=== PATIENT | female | born 1990 ===

== ENCOUNTER 2018-11-04 10:17 | Emergency (ER) | payer MEDICAID ==
--- NOTE | 2018-11-04 10:53 | ED PDOC ---
HPI: Chest Pain History Per: Patient History/Exam Limitations: no limitations Onset/Duration Of Symptoms: Days (4) Quality: Sharp Exacerbating Factors: Movement, Deep Breathing Additional Complaint(s): Pt is a 28 y/ o female with no pmhx presents to ED for evaluation of left sided chest pain. States she noticed this pain 4 days ago after cleaning around the house for 1.5hr shortly before. She localizes the pain to her left lateral chest extending to her underarm, describes it as sharp, rating 6/10 - 10/10 in inten sity. Reports that it is exacerbated with adduction of her left arm and twisting her torso, and inhaling deeply. She has tried taking Motrin 600mg and states it did not alleviate her pain at all. She denies any palpitations, diaphoresis, LE edema, shortness of breath, cough, congestion, fever/ chills, prolonged immobility, or any symptoms with exertion or food. She reports that she often stand for long periods of time at her job and does not stretch or exercise. ROS:vomited once yesterday morning, non bloody, no other GI symptoms PMD: Dr. Carter PMHX: Denies of cardiac, pul disease, or clots. SurgHx: Denies FMHx: No fm hx of cardiac disease or sudden Medications: Motrin prn for pain. 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, denies smoking, alcohol or drug use <Ti Mercedes - Last Filed: 11/04/18 15:40> <Erick Kennedy - Last Filed: 11/07/18 17:14> Time Seen by Provider: 11/04/18 10:34 Chief Complaint (Nursing): Chest Pain Past Medical History Reviewed: Historical Data, Nursing Documentation, Vital Signs Vital Signs: Last Vital Signs Temp 99 F 11/04/18 10:32 Pulse 98 H 11/04/18 10:32 Resp 18 11/04/18 10:32 BP 139/81 11/04/18 10:32 Pulse Ox 99 11/04/18 10:32 - Medical History PMH: No Chronic Diseases - Surgical History Surgical History: No Surg Hx - Family History Family History: States: No Known Family Hx - Living Arrangements Living Arrangements: With Family <Ti Mercedes - Last Filed: 11/04/18 15:40> Reviewed: Historical Data Vital Signs: Last Vital Signs Temp 98 F 11/04/18 17:28 Pulse 88 11/04/18 17:28 Resp 20 11/04/18 17:28 BP 134/78 11/04/18 17:28 Pulse Ox 99 11/04/18 17:29 <Erick Kennedy - Last Filed: 11/07/18 17:14> - Allergies Allergies/Adverse Reactions: Allergies Allergy/AdvReac Type Severity Reaction Status Date / Time No Known Allergies Allergy Verified 11/04/18 10:32 MAURICIO Risk Score for UA/NSTEMI - MAURICIO Risk Score Age > 64: NO 3 or more CAD Risk Factors: NO Known CAD (Stenosis greater than 50%): NO Aspirin use in past 7 days: NO Severe Angina: NO EKG ST changes greater than 0.5mm: NO Positive Cardiac Marker: NO MAURICIO Score: 0 Risk %: 5% <Erick Kennedy - Last Filed: 11/07/18 17:14> Wells Criteria for PE - Wells Criteria for Pulmonary Embolism Clinical Signs and Symptoms of DVT: No P.E is #1 Diagnosis, or Equally Likely: No Heart Rate >100: No Immobilization at least 3 days;Surgery previous 4 weeks: No Previous, objectively diagnosed PE or DVT: No Hemoptysis: No Malignancy w/treatment within 6 months, or palliative: No Total Score: 0 <Ti Mercedes - Last Filed: 11/04/18 15:40> Review of Systems Constitutional: Negative for: Fever, Chills Cardiovascular: Negative for: Palpitations Respiratory: Negative for: Cough, Shortness of Breath, Hemoptysis Gastrointestinal: Positive for: Vomiting (x1). Negative for: Nausea, Abdominal Pain, Diarrhea Genitourinary Female: Negative for: Dysuria Musculoskeletal: Negative for: Neck Pain, Shoulder Pain <Ti Mercedes - Last Filed: 11/04/18 15:40> ROS Statement: Except As Marked, All Systems Reviewed And Found Negative <Erick Kennedy - Last Filed: 11/07/18 17:14> Physical Exam - Physical Exam Appears: Positive for: No Acute Distress (Comfortable appearing female, seen walking to and from bathroom without any difficulty ) Head Exam: Positive for: ATRAUMATIC Skin: Positive for: Normal Color Eye Exam: Positive for: Normal appearance Neck: Positive for: Normal, Painless ROM Cardiovascular/Chest: Positive for: Regular Rate, Rhythm, Other (+ Tenderness on palpation localized to lateral left wall extending to under arm, pain illicited with arm adduction ). Negative for: Murmur Respiratory: Positive for: Normal Breath Sounds. Negative for: Accessory Muscle Use, Crackles, Rales, Wheezing Pulses-Radial (L): 2+ Pulses-Radial (R): 2+ Gastrointestinal/Abdominal: Positive for: Normal Exam, Bowel Sounds, Soft. Negative for: Tenderness Back: Negative for: Vertebral Tenderness Extremity: Positive for: Capillary Refill. Negative for: Pedal Edema Neurological/Psych: Positive for: Awake, Alert <Ti Mercedes - Last Filed: 11/04/18 15:40> - Reviewed Nursing Documentation Reviewed: Yes Vital Signs Reviewed: Yes <Erick Kennedy A - Last Filed: 11/07/18 17:14> - Laboratory Results Result Diagrams: 11/04/18 13:20 11/04/18 13:20 - ECG O2 Sat by Pulse Oximetry: 99 <Ti Mercedes - Last Filed: 11/04/18 15:40> - Laboratory Results Result Diagrams: 11/04/18 13:20 11/04/18 13:20 Lab Results: D-Dimer, Quantitative 384 ng/mlDDU (0-230) H 11/04/18 13:20 Troponin I < 0.0120 ng/mL (0.00-0.120) 11/04/18 13:20 <Erick Kennedy A - Last Filed: 11/07/18 17:14> Medical Decision Making Medical Decision Making: Pt is a 28 y/ o female with no pmhx presents to ED for evaluation of left sided chest pain that is exacerbated with movement and tender to palpation. Low suspicion for cardiac or pulmonary etiology. Likely musculoskeletal strain EKG- no ischemic changes noted Toradol 30mg IM Flexiril Cxray CBC BMP DDimer Troponin 1300, pt seen sleeping ,appears comfortable. Upon awaking reports pain is still presents w/o improvement Labs ordered 1400, D Dimer elevated, remainder of labs normal. CT Angio Ordered. On re- evaluation pt seen sleeping, states pain is improved. <Ti Mercedes - Last Filed: 11/04/18 15:40> Disposition Discussed With : Erick Kennedy - Disposition Disposition Time: 15:40 <Ti Mercedes - Last Filed: 11/04/18 15:40> - Patient ED Disposition Is Patient to be Admitted: Transfer of Care Counseled Patient/Family Regarding: Studies Performed, Diagnosis - Disposition Disposition: Transfer of Care Disposition Time: 15:00 <Erick Kennedy - Last Filed: 11/07/18 17:14> - Clinical Impression Clinical Impression: Chest pain - Disposition Referrals: [facility] [Outside] - 11/08/18 Condition: STABLE Additional Instructions: Return if not better in 3 days. Prescriptions: Diazepam [Valium] 2 mg PO BID PRN #6 tab PRN Reason: Muscle Spasm Ibuprofen [Motrin] 600 mg PO TID 7 Days tab Instructions: Chest Pain Forms: [facility] ED School/Work Excuse
--- NOTE | 2018-11-04 12:52 | RAD ---
Date of service: 11/04/2018 HISTORY: Left chest wall pain. No history of trauma provided COMPARISON: No prior. TECHNIQUE: Chest PA and lateral FINDINGS: LUNGS: No active pulmonary disease. PLEURA: No significant pleural effusion identified. No pneumothorax apparent. CARDIOVASCULAR: No aortic atherosclerotic calcification present. Normal cardiac size. No pulmonary vascular congestion. OSSEOUS STRUCTURES: No significant abnormalities. VISUALIZED UPPER ABDOMEN: Normal. OTHER FINDINGS: None. IMPRESSION: No active disease.
[2018-11-04 13:29] LABS: BASO % 0.2 % (0.0-2.0); EOS % 0.1 % (0.0-4.0); HEMOGLOBIN 12.5 g/dL (12.0-16.0); LYMPH # 0.8 K/uL (1.0-4.3); LYMPH % 18.6 % (20.0-40.0); MEAN CELL VOLUME 88.3 fl (81.0-99.0); MEAN CORPUSCULAR HEMOGLOBIN 29.3 pg (27.0-31.0); MEAN CORPUSCULAR HGB CONC 33.2 g/dL (33.0-37.0); MEAN PLATELET VOLUME 8.3 fl (7.2-11.7); MONO # 0.4 K/uL (0.0-0.8); MONO % 8.7 % (0.0-10.0); NEUT % 72.4 % (50.0-75.0); NRBC % 0.2 % (0.0-0.0); RBC 4.28 Mil/uL (3.80-5.20); RED CELL DISTRIBUTION WIDTH 13.4 % (11.5-14.5); WHITE BLOOD COUNT 4.2 K/uL (4.8-10.8)
[2018-11-04 13:48] LABS: BLOOD UREA NITROGEN 13 mg/dl (7-17); CALCIUM 8.9 mg/dL (8.4-10.2); GFR NON-AFRICAN AMERICAN > 60
--- NOTE | 2018-11-04 15:38 | ED PDOC ---
- Laboratory Results Result Diagrams: 11/04/18 13:20 11/04/18 13:20 Lab Results: D-Dimer, Quantitative 384 ng/mlDDU (0-230) H 11/04/18 13:20 Troponin I < 0.0120 ng/mL (0.00-0.120) 11/04/18 13:20 Interpretation Of Abn Labs: no acute - ECG O2 Sat by Pulse Oximetry: 99 (RA) Pulse Ox Interpretation: Normal - Radiology X-Ray: Read By Radiologist X-Ray Interpretation: No Acute Disease Medical Decision Making Medical Decision Makin Patient signed over to me by Dr. Kennedy pending CT results. Scribe Attestation: Documented by Edwina Thomas, acting as a scribe for Rex Russell MD. Provider Scribe Attestation: All medical record entries made by the Scribe were at my direction and personally dictated by me. I have reviewed the chart and agree that the record accurately reflects my personal performance of the history, physical exam, medical decision making, and the department course for this patient. I have also personally directed, reviewed, and agree with the discharge instructions and disposition. 1713: Stable. AAOx3. Pain free. Tolerated po. Fu with pcp. Disposition - Clinical Impression Clinical Impression: Chest pain - POA Present On Arrival: None - Disposition Referrals: [facility] [Outside] - 11/08/18 Disposition: Routine/Home Disposition Time: 17:14 Condition: STABLE Additional Instructions: Return if not better in 3 days. Prescriptions: Diazepam [Valium] 2 mg PO BID PRN #6 tab PRN Reason: Muscle Spasm Ibuprofen [Motrin] 600 mg PO TID 7 Days tab Instructions: Chest Pain Forms: [facility] ED School/Work Excuse
[2018-11-04] MEDS ORDERED: Sodium Chloride 0.9% 50 ML IV ONE (15:42)
[2018-11-04] MEDS ORDERED: Iodixanol 320 MG/ML 100 ML BOTTLE IV ONE (15:42)
--- NOTE | 2018-11-04 17:08 | CT ---
Date of service: 11/04/2018 PROCEDURE: CT Chest with contrast (Pulmonary Angiogram) HISTORY: chest pain COMPARISON: Plain radiographs performed the same day. TECHNIQUE: Axial computed tomography images were obtained of the chest in the pulmonary arterial phase of enhancement. Coronal and sagittal reformatted images were created and reviewed. Intravenous contrast dose: 73 cc Visipaque 320 the Radiation dose: Total exam DLP = 285.15 mGy-cm. This CT exam was performed using one or more of the following dose reduction techniques: Automated exposure control, adjustment of the mA and/or kV according to patient size, and/or use of iterative reconstruction technique. FINDINGS: PULMONARY ARTERIES: There are no filling defects in the pulmonary arteries to suggest acute pulmonary embolism. AORTA: No acute findings. No thoracic aortic aneurysm. No aortic atherosclerotic calcification or mural plaque present. LUNGS: The lungs are well inflated and clear. No nodule, mass or pulmonary consolidation. PLEURAL SPACES: No effusion or pneumothorax. HEART: No cardiomegaly. No significant pericardial effusion. LYMPH NODES: No pathologic mediastinal or hilar lymphadenopathy. BONES, CHEST WALL: Within normal limits for the patient's age. No fracture or destructive lesion OTHER FINDINGS: None. IMPRESSION: No CTA evidence for acute pulmonary embolism. Clear lungs.
--- NOTE | 2018-11-04 17:14 | CARD ---
APPROVED REPORT Date of service: 11/04/2018 EKG Measurement Heart [id number] <Conclusion> Sinus tachycardia Otherwise normal ECG
[2018-11-04 17:28] VITALS: BP 134/78; RESP 20; TEMP 98
[2018-11-04 17:29] VITALS: PULSE 88; O2SAT 99
== END 2018-11-04 17:29 | disposition home or self-care (01) ==
LOC: H.ER 10:17
DX: R07.89 Other chest pain (principal)
CPT/HCPCS: 71046; 71275; 80048; 81025; 84484; 85025; 85378; 93005; 96372; 99284; J1885; Q9967